=== PATIENT | female | born 1970 | race Caucasian/White ===

== ENCOUNTER 2018-04-17 15:04 | Observation (INO) ==
[2018-04-17] MEDS ORDERED: Naloxone 0.4 MG/ML INJ IVP PRN (17:06)
[2018-04-17] MEDS ORDERED: Acetaminophen 325 MG TABLET PO PRN (17:06)
--- NOTE | 2018-04-17 17:52 | Internal Med History&Physical ---
Date of Encounter: 04/17/18 Time of Encounter: 17:30 Internal Medicine - H&P: HPI Chief complaint: Right knee pain and swelling Admitted From: Emergency Dept ([place]) History of present illness: Ms. Mensah is a 48 year old female patient with a history of hypertension, COPD, hypothyroidism who recently underwent right-sided total knee replacement 2 days back presented to the ER attending [facility] with complaints of worsening swelling and redness around her right knee along with pain going up her thigh and down her leg. Patient reports that the pain and swelling started to get worse after she was discharged home yesterday. She has also been having low-grade fevers. Denies any chest pain or palpitations. No shortness of breath. No nausea or vomiting. Pain in the right leg is severe. She does not have any numbness or tingling in her right foot. Past Med Surg Social Fam HX - Past Medical History Attestation: Yes The following information was validated with the patient. Source: patient Medical history: arthritis, COPD, hypertension, osteoporosis, thyroid disease Additional medical history: hypothyroidism,stress urinary incontinence,hip arthritis,chronic obstructive bronchitis,arthritis,posterior tibial tendon dysfunction Psychiatric history: anxiety, depression - Past Surgical History Surgical History: cholecystectomy, herniorrhaphy, hip replacement, hysterectomy, knee replacement Additional surgical history: L hip - Social History Smoking Status: Current every day smoker Packs per day: 1 Smokeless Tobacco Status: No Alcohol use: none Drug use: none - Family History Father Living Status: Age at : 71 Cause of : CHF Hx Family Cardiac Disorders: Yes Hx Family Respiratory Disorders: Yes - Additional Family History Additional family history: Patient reports history of deep vein thrombosis in her mother and grandmother Internal Medicine - H&P: Meds Alendronate Sodium 10 mg PO DAILY 04/15/18 [History] Aspirin Enteric Coated [Aspirin EC] 325 mg PO BID #20 tablet. 04/15/18 [Rx] Calcium Carbonate/Vitamin D3 [Oyster Shell Calcium-Vit D Tab] 1 tab PO DAILY 04/15/18 [History] Calcium Polycarbophil [Fibercon] 625 mg PO BID 04/15/18 [History] Cholecalciferol (D-3) [Vitamin D] 2,000 unit PO DAILY 04/15/18 [History] Cyanocobalamin (Vitamin B-12) [Vitamin B-12] 1,000 mcg PO DAILY 04/15/18 [History] Doxepin [Sinequan] 25 - 50 mg PO HS 04/15/18 [History] Escitalopram [Lexapro] 20 mg PO DAILY 04/15/18 [History] Famotidine [Pepcid] 20 mg PO DAILY 04/15/18 [History] Latanoprost [Xalatan] 1 puff BOTH EYES HS 04/15/18 [History] Levothyroxine [Synthroid] 25 mcg PO 0630 04/15/18 [History] Loratadine [Claritin] 10 mg PO DAILY 04/15/18 [History] Metoprolol [Lopressor] 25 mg PO BID 04/15/18 [History] Omeprazole [PriLOSEC] 40 mg PO BID 04/15/18 [History] OxyCODONE Immed Rel [Roxicodone 5 MG] 5 mg PO Q6HR PRN 5 Days #20 tablet 04/15/18 [Rx] Oxybutynin Chloride [Ditropan Xl] 10 mg PO DAILY 04/15/18 [History] clonazePAM [Clonazepam] 0.5 mg PO BID PRN 04/15/18 [History] hydrOXYzine pamoate [Hydroxyzine Pamoate] 25 - 50 mg PO BID PRN 04/15/18 [History] hydroCHLOROthiazide [Hydrochlorothiazide] 12.5 mg PO DAILY 04/15/18 [History] Docusate [Colace] 100 mg PO BID capsule 04/16/18 [Rx] Allergy/AdvReac Type Severity Reaction Status Date / Time Diclofenac AdvReac Nausea Verified 04/15/18 10:10 venlafaxine AdvReac Headache Verified 04/15/18 10:10 All Systems PM: A 10-system review of systems was performed and is negative for pertinent findings except as documented above in the HPI. - Constitutional Constitutional: no chills, no fever(s), no night sweats - EENT Eyes: no change in vision, no discharge, no pain, no photophobia Ears: no ear discharge, no ear pain, no tinnitus Nose, mouth and throat: no dysphagia, no nasal discharge, no neck pain, no sore throat - Cardiovascular Cardiovascular ROS IM: no chest pain, no diaphoresis, no dyspnea, no lightheadedness, no palpitations, no syncope - Respiratory Respiratory: no cough, no dyspnea, no wheezing, no excessive phlegm production - Gastrointestinal Gastrointestinal: no abdominal pain, no diarrhea, no hematemesis, no hematochezia, no melena, no nausea, no vomiting - Genitourinary Genitourinary: no change in urinary stream, no dysuria, no flank pain, no hematuria - Musculoskeletal Musculoskeletal ROS IM: joint swelling, no numbness, no tingling - Integumentary Integumentary IM: other (Erythema and redness on the posterior part of her knee extending up the thigh), no rash, no unusual bruising - Neurological Neurological ROS: no confusion, no convulsions, no focal weakness, no numbness, no tingling, no tremor(s) - Constitutional Vitals: Temp Pulse Resp BP Pulse Ox 98.5 F 77 14 123/77 100 04/17/18 17:00 04/17/18 17:00 04/17/18 17:00 04/17/18 17:00 04/17/18 17:00 General appearance: Present: cooperative, A&O X 3, pleasant, answers questions appropriately Exam: General: Patient is alert, moderate distress, oriented x 3 Head: atraumatic, normocephalic, Chest: normal inspection, symmetric chest rise Respiratory: Good respiratory effort. Normal breath sounds. No wheezing or crackles. Cardiovascular: Regular rate and rhythm. s1 and s2 normal No clicks, rubs, gallops, or murmurs. No pedal edema Abdomen: Abdomen is soft, nontender. Bowel sounds are present Musculoskeletal: Spontaneously moving all extremities Skin: Erythema and swelling on the posterior surface of the right knee extending up the thigh and down her leg. Surgical site appears clean. There is mild erythema around the surgical site but erythema is more prominent on the back of the knee. Tenderness to palpation extending down the right calf. Neuro: Alert oriented x 3 normal cranial nerves, no focal deficits Psych: Patient's affect is normal Internal Med - H&P Results - Labs Labs: Sodium 138, potassium 3.3, WBC 13, platelets 339, hemoglobin 11.8 - Impressions X-ray of the right knee shows some joint effusion but right knee arthroplasty does not show any acute hardware complication. - Assessment and plan (1) Leg pain, right Current Visit: Yes Status: Acute Assessment and plan: Patient has pain and swelling in the right knee but pain is mostly in the back of her right thigh extending down her right leg along with swelling and redness. Concern for possible DVT. Will obtain venous Doppler. If venous Doppler negative, we will need to consider right knee joint infection/cellulitis in this region. We will hold off on antibiotics until we clarify this further so that we can obtain synovial fluid samples if needed. WBC count 13 is actually better than yesterday. Patient also reports a family history of blood clots. In the meantime, will treat pain with narcotic medications. (2) COPD (chronic obstructive pulmonary disease) Current Visit: Yes Status: Chronic Assessment and plan: Patient has history of COPD. Not in acute exacerbation. We will place her on bronchodilators as needed Qualifiers: COPD type: unspecified COPD Qualified Code(s): J44.9 - Chronic obstructive pulmonary disease, unspecified (3) Hypertension Current Visit: Yes Status: Chronic Assessment and plan: continue hydrochlorothiazide and metoprolol. Replace potassium Qualifiers: Hypertension type: essential hypertension Qualified Code(s): I10 - Essential (primary) hypertension (4) Anxiety with depression Current Visit: Yes Status: Chronic Assessment and plan: Continue home medications for this including doxepin, Lexapro and clonazepam. - Time Spent With Patient Total time spent is greater than 50% in coordination of care (as documented) at patient's floor/unit and/or counseling patient:
[2018-04-17] MEDS ORDERED: hydrOXYzine pamoate 25 MG CAPSULE PO PRN (18:20)
[2018-04-17] MEDS: *HR* OxyCODONE Immed Rel 5 MG TABLET PO PRN (18:38)
[2018-04-17] MEDS: clonazePAM 0.5 MG TABLET PO PRN (19:52)
[2018-04-17] MEDS: Latanoprost 2.5 ML BOTTLE BOTH EYES SCH (19:53)
[2018-04-17] MEDS: Ringers Solution, Lactated 1,000 ML IVC SCH (23:03)
[2018-04-18] MEDS: *HR* OxyCODONE Immed Rel 5 MG TABLET PO PRN ×3 (00:45→15:57)
[2018-04-18 04:37] LABS: Basophils % 0.3 %; Eosinophils # 0.2 K/mcL (0.0-0.6); Eosinophils % 2.1 %; Hematocrit 32.4 % (35.3-44.9); Hemoglobin 10.5 g/dL (11.5-15.4); Immature Granulocytes % 0.5 % (0-4); Lymphocytes # 3.4 K/mcL (0.6-4.6); Lymphocytes % 32.7 %; Mean Corpuscular HGB Conc 32.4 g/dL (31.6-35.5); Mean Corpuscular Hemoglobin 29.4 pg (28.0-33.3); Mean Corpuscular Volume 90.8 fL (83.0-100.0); Monocytes % 9.2 %; Neutrophils # 5.7 K/mcL (1.6-8.9); Platelet Count 301 K/mcL (140-400); Red Blood Count 3.57 M/mcL (3.82-4.97); Red Cell Distribution Width 13.7 % (11.5-14.5); Segmented Neutrophils % 55.2 %
[2018-04-18 04:58] LABS: BUN/Creatinine Ratio 11 (6-26); Blood Urea Nitrogen 7 mg/dL (6-20); Calcium 8.7 mg/dL (8.6-10.3); Carbon Dioxide 29 mEq/L (23-29); Chloride 106 mEq/L (98-107); Glucose 116 mg/dL (70-105); Osmolality,Calculated 289 (280-300); Potassium 3.7 mEq/L (3.5-5.1); Sodium 140 mEq/L (136-145); eGFR For Non-African Americans > 60 (> 60)
[2018-04-18] MEDS: *HR* Enoxaparin 40 MG/0.4 ML SYRINGE SQ SCH (05:27)
[2018-04-18] MEDS: Levothyroxine 25 MCG TABLET PO SCH (05:27)
[2018-04-18] MEDS: Loratadine 10 MG TABLET PO SCH (08:48)
[2018-04-18] MEDS: Famotidine 20 MG TABLET PO SCH (08:48)
[2018-04-18] MEDS: hydroCHLOROthiazide 25 MG TABLET PO SCH (08:48)
--- NOTE | 2018-04-18 09:56 | Orthopedic Consult Note ---
Date of Encounter: 04/18/18 Time of Encounter: 09:53 Assessment and Plan (1) Osteoarthritis of right knee Current Visit: No Status: Chronic At this point the knee looks excellent clinically. No concern for infection. Expected postoperative changes seen on clinical exam. The Doppler study was negative for DVT. She is orthopedically stable for discharge with regular follow-up. Continue weightbearing as tolerated in therapy. We will be available as needed for any further consultation for any new issues. Qualifiers: Osteoarthritis type: primary Qualified Code(s): M17.11 - Unilateral primary osteoarthritis, right knee History of Present Illness HPI: Ms. Mensah is a 48 year old female who underwent right total knee arthroplasty on of last week. She presented to the emergency department at [facility] and was transferred due to concerns for cellulitis. She underwent a Doppler study which was negative. On my evaluation she complains of expected postoperative pain to the right knee. No new injuries or complaints. She denies fevers, chil ls, numbness, tingling, or any other associated signs or symptoms. Pain is mildly worsened with movement of the knee and with walking and better with rest. No other associated signs or symptoms or modifying factors. Past Med Surg Social Fam HX - Past Medical History Medical history: arthritis, COPD, hypertension, osteoporosis, thyroid disease Additional medical history: hypothyroidism,stress urinary incontinence,hip arthritis,chronic obstructive bronchitis,arthritis,posterior tibial tendon dysfunction Psychiatric history: anxiety, depression - Past Surgical History Surgical History: cholecystectomy, herniorrhaphy, hip replacement, hysterectomy, knee replacement Additional surgical history: L hip - Social History Smoking Status: Current every day smoker Packs per day: 1 Smokeless Tobacco Status: No Alcohol use: none Drug use: none - Family History Father Living Status: Age at : 71 Cause of : CHF Hx Family Cardiac Disorders: Yes Hx Family Respiratory Disorders: Yes Medications and Allergies Alendronate Sodium 10 mg PO DAILY 04/15/18 [History] Aspirin Enteric Coated [Aspirin EC] 325 mg PO BID #20 tablet. 04/15/18 [Rx] Calcium Carbonate/Vitamin D3 [Oyster Shell Calcium-Vit D Tab] 1 tab PO DAILY 04/15/18 [History] Calcium Polycarbophil [Fibercon] 625 mg PO BID 04/15/18 [History] Cholecalciferol (D-3) [Vitamin D] 2,000 unit PO DAILY 04/15/18 [History] Cyanocobalamin (Vitamin B-12) [Vitamin B-12] 1,000 mcg PO DAILY 04/15/18 [History] Doxepin [Sinequan] 25 - 50 mg PO HS 04/15/18 [History] Escitalopram [Lexapro] 20 mg PO DAILY 04/15/18 [History] Famotidine [Pepcid] 20 mg PO DAILY 04/15/18 [History] Latanoprost [Xalatan] 1 puff BOTH EYES HS 04/15/18 [History] Levothyroxine [Synthroid] 25 mcg PO 0630 04/15/18 [History] Loratadine [Claritin] 10 mg PO DAILY 04/15/18 [History] Metoprolol [Lopressor] 25 mg PO BID 04/15/18 [History] Omeprazole [PriLOSEC] 40 mg PO BID 04/15/18 [History] OxyCODONE Immed Rel [Roxicodone 5 MG] 5 mg PO Q6HR PRN 5 Days #20 tablet 04/15/18 [Rx] Oxybutynin Chloride [Ditropan Xl] 10 mg PO DAILY 04/15/18 [History] clonazePAM [Clonazepam] 0.5 mg PO BID PRN 04/15/18 [History] hydrOXYzine pamoate [Hydroxyzine Pamoate] 25 - 50 mg PO BID PRN 04/15/18 [History] hydroCHLOROthiazide [Hydrochlorothiazide] 12.5 mg PO DAILY 04/15/18 [History] Docusate [Colace] 100 mg PO BID capsule 04/16/18 [Rx] Allergy/AdvReac Type Severity Reaction Status Date / Time Diclofenac AdvReac Nausea Verified 04/15/18 10:10 venlafaxine AdvReac Headache Verified 04/15/18 10:10 All Systems Reviewed: Constitutional -The patient denies any fevers, chills, or feelings of illness Neurologic -The patient denies any numbness, tingling, or burning pains Physical Exam - Constitutional Vitals: Temp Pulse Resp BP Pulse Ox 98.8 F 97 16 128/84 96 04/18/18 06:33 04/18/18 06:33 04/18/18 06:33 04/18/18 06:33 04/18/18 06:33 CONSTITUTIONAL -Vitals reviewed -The patient is well developed, well nourished, well groomed PSYCHIATRIC -Fully alert and oriented -Pleasant mood RIGHT LOWER EXTREMITY Inspection shows that the total knee incision is well opposed and without drainage. No redness around the wound and looks very good clinically. I can gently passively range the knee without significant pain. Mild swelling of the knee and leg consistent with her known history of knee replacement. She can grossly flex and extend the ankle and toes and the foot is sensate and well- perfused. Diagnostic Imaging: I did personally review and interpret x-rays of the right knee which show a well-placed total knee arthroplasty Results - Labs Result Diagrams: 04/18/18 03:57 04/18/18 03:57 Labs: Abnormal lab results RBC 3.57 M/mcL (3.82-4.97) L 04/18/18 03:57 Hgb 10.5 g/dL (11.5-15.4) L 04/18/18 03:57 Hct 32.4 % (35.3-44.9) L 04/18/18 03:57 MPV 9.0 fL (9.4-12.4) L 04/18/18 03:57 Glucose 116 mg/dL (70-105) H 04/18/18 03:57 H & H 04/18/18 Range/Units 03:57 Hgb 10.5 L (11.5-15.4) g/dL Hct 32.4 L (35.3-44.9) % All other labs normal. Consult Discharge Plan - Plan Referrals: NONE,PCP [Primary Care Provider] -
[2018-04-18] MEDS: Ketorolac 30 MG/ML VIAL IVP PRN ×2 (12:26→20:46)
--- NOTE | 2018-04-18 13:25 | Internal Med Progress Note ---
Hospitalist Progress Note - Encounter Date of Encounter: 04/18/18 Time of Encounter: 13:20 - Subjective Interval History: 48 year old female patient with a history of hypertension, COPD, hypothyroidism who recently underwent right-sided total knee replacement 2 days prior to presentation yesterday 04/17 She is complaining of knee swelling, pain and difficulty walking Initial concern for DVT, however, DVT ruled out Ortho eval appreciated, patient 's knees have tyical post-op changes and does not need tapped The patient is declining going home and asking to be placed Will consult PTOT - Exam Vitals: Temp Pulse Resp BP Pulse Ox 98.8 F 97 16 128/84 96 04/18/18 06:33 04/18/18 06:33 04/18/18 06:33 04/18/18 06:33 04/18/18 06:33 Exam: General: Patient is alert, not in distress, oriented x 3, morbidly obese Head: atraumatic, normocephalic, Chest: normal inspection, symmetric chest rise Respiratory: Good respiratory effort. Normal breath sounds. No wheezing or crackles. Cardiovascular: Regular rate and rhythm. s1 and s2 normal No clicks, rubs, gallops, or murmurs. No pedal edema Abdomen: Abdomen is soft, non-tender. Bowel sounds are present Musculoskeletal: Spontaneously moving all extremities Skin: mild Erythema and swelling on the posterior surface of the right knee extending up the thigh and down her leg. Surgical site appears clean. There is no obvious infection and her knee joint is not warm, ROM limited by patient's co-operation. Her right foot is well perfused Neuro: Alert oriented x 3 normal cranial nerves, no focal deficits Psych: Patient's affect is normal - Assessment and Plan (1) Hypertension Current Visit: Yes Status: Chronic Assessment and Plan: continue hydrochlorothiazide and metoprolol. (2) COPD (chronic obstructive pulmonary disease) Current Visit: Yes Status: Chronic Assessment and Plan: Patient has history of COPD. Not in acute exacerbation. Continue bronchodilators as needed (3) Leg pain, right Current Visit: Yes Status: Acute Assessment and Plan: Post-op, as expected, pain is not above expectation, but patient wants to be placed in SNF and states she cannot walk Continue pain control PT eval requested (4) Anxiety with depression Current Visit: Yes Status: Chronic Assessment and Plan: Continue home medications for this including doxepin, Lexapro and clonazepam. DVT Prophylaxis: SQ lovenox - Time Spent with Patient Total time spent is greater than 50% in coordination of care (as documented) at patient's floor/unit and/or counseling patient: Plan of Care Discussed with: patient Internal Medicine: Result - Labs CBC & Chem 7: 04/18/18 03:57 04/18/18 03:57 Labs: Short CBC 04/18/18 Range/Units 03:57 WBC 10.3 (4.3-11.1) K/mcL Hgb 10.5 L (11.5-15.4) g/dL Hct 32.4 L (35.3-44.9) % Plt Count 301 (140-400) K/mcL Neutrophils # 5.7 (1.6-8.9) K/mcL BMP 04/18/18 03:57 Sodium 140 Potassium 3.7 Chloride 106 Carbon Dioxide 29 BUN 7 Creatinine 0.62 Glucose 116 H Calcium 8.7 Consult Discharge Plan - Plan Referrals: NONE,PCP [Primary Care Provider] - ___ (1) Hypertension Qualifiers: Hypertension type: essential hypertension Qualified Code(s): I10 - Essential (primary) hypertension (2) COPD (chronic obstructive pulmonary disease) Qualifiers: COPD type: unspecified COPD Qualified Code(s): J44.9 - Chronic obstructive pulmonary disease, unspecified
[2018-04-18] MEDS: Ringers Solution, Lactated 1,000 ML IVC SCH (14:30)
[2018-04-18] MEDS: clonazePAM 0.5 MG TABLET PO PRN (15:33)
[2018-04-18] MEDS: Nicotine 14 MG PATCH.TD24 TD SCH (15:33)
[2018-04-18] MEDS: Latanoprost 2.5 ML BOTTLE BOTH EYES SCH (23:55)
[2018-04-19] MEDS: *HR* OxyCODONE Immed Rel 5 MG TABLET PO PRN ×3 (00:02→13:02)
[2018-04-19 05:34] LABS: Basophils % 0.4 %; Eosinophils # 0.3 K/mcL (0.0-0.6); Eosinophils % 3.1 %; Hematocrit 32.3 % (35.3-44.9); Hemoglobin 10.4 g/dL (11.5-15.4); Immature Granulocytes % 0.5 % (0-4); Lymphocytes # 2.9 K/mcL (0.6-4.6); Lymphocytes % 31.3 %; Mean Corpuscular HGB Conc 32.2 g/dL (31.6-35.5); Mean Corpuscular Hemoglobin 29.9 pg (28.0-33.3); Mean Corpuscular Volume 92.8 fL (83.0-100.0); Mean Platelet Volume 9.1 fL (9.4-12.4); Monocytes # 0.6 K/mcL (0.0-1.3); Monocytes % 6.5 %; Neutrophils # 5.3 K/mcL (1.6-8.9); Platelet Count 320 K/mcL (140-400); Red Blood Count 3.48 M/mcL (3.82-4.97); Red Cell Distribution Width 13.8 % (11.5-14.5); Segmented Neutrophils % 58.2 %
[2018-04-19] MEDS: *HR* Enoxaparin 40 MG/0.4 ML SYRINGE SQ SCH (05:47)
[2018-04-19] MEDS: Levothyroxine 25 MCG TABLET PO SCH (05:47)
[2018-04-19] MEDS: Ringers Solution, Lactated 1,000 ML IVC SCH (05:57)
[2018-04-19 06:00] LABS: BUN/Creatinine Ratio 18 (6-26); Blood Urea Nitrogen 11 mg/dL (6-20); Calcium 8.4 mg/dL (8.6-10.3); Carbon Dioxide 28 mEq/L (23-29); Chloride 105 mEq/L (98-107); Glucose 113 mg/dL (70-105); Osmolality,Calculated 288 (280-300); Potassium 3.7 mEq/L (3.5-5.1); Sodium 139 mEq/L (136-145); eGFR For Non-African Americans > 60 (> 60)
[2018-04-19] MEDS: Loratadine 10 MG TABLET PO SCH (08:52)
[2018-04-19] MEDS: Famotidine 20 MG TABLET PO SCH (08:53)
[2018-04-19] MEDS: Nicotine 14 MG PATCH.TD24 TD SCH (08:54)
[2018-04-19] MEDS: hydroCHLOROthiazide 25 MG TABLET PO SCH (08:57)
--- NOTE | 2018-04-19 11:34 | Physician Discharge Referral ---
Home Health/Hosp Referral Info Transfer to: Home Health Attending Provider: Ignacia Han Provider in Charge Post Discharge: PCP - Diagnosis (1) Hypertension Priority: Secondary Status: Chronic (2) COPD (chronic obstructive pulmonary disease) Priority: Secondary Status: Chronic (3) Leg pain, right Priority: Primary Status: Acute (4) Anxiety with depression Priority: Secondary Status: Chronic (5) Tobacco use Priority: Secondary Status: Chronic (6) Morbid obesity Priority: Secondary Status: Chronic (7) Status post total right knee replacement Priority: Primary Status: Acute - Respiratory Orders Smoking Cessation: Smoking cessation has been advised. For more information, call the [place] Tobacco Quit Line at 6-630-UQLS-NOW. - Diet/Nutrition Diet/Nutrition Orders: Cardiac - Activity Activity Orders: Up ad zach - Services Needed Following services are medically necessary services: Nursing, Home Health Aide, Physical Therapy, Occupational Therapy - Transfer Medications Home Medications: Alendronate Sodium 10 mg PO DAILY 04/15/18 [History] Aspirin Enteric Coated [Aspirin EC] 325 mg PO BID #20 tablet. 04/15/18 [Rx] Calcium Carbonate/Vitamin D3 [Oyster Shell Calcium-Vit D Tab] 1 tab PO DAILY 04/15/18 [History] Calcium Polycarbophil [Fibercon] 625 mg PO BID 04/15/18 [History] Cholecalciferol (D-3) [Vitamin D] 2,000 unit PO DAILY 04/15/18 [History] Cyanocobalamin (Vitamin B-12) [Vitamin B-12] 1,000 mcg PO DAILY 04/15/18 [History] Doxepin [Sinequan] 25 - 50 mg PO HS 04/15/18 [History] Escitalopram [Lexapro] 20 mg PO DAILY 04/15/18 [History] Famotidine [Pepcid] 20 mg PO DAILY 04/15/18 [History] Latanoprost [Xalatan] 1 puff BOTH EYES HS 04/15/18 [History] Levothyroxine [Synthroid] 25 mcg PO 0630 04/15/18 [History] Loratadine [Claritin] 10 mg PO DAILY 04/15/18 [History] Metoprolol [Lopressor] 25 mg PO BID 04/15/18 [History] Omeprazole [PriLOSEC] 40 mg PO BID 04/15/18 [History] OxyCODONE Immed Rel [Roxicodone 5 MG] 5 mg PO Q6HR PRN 5 Days #20 tablet 04/15/18 [Rx] Oxybutynin Chloride [Ditropan Xl] 10 mg PO DAILY 04/15/18 [History] clonazePAM [Clonazepam] 0.5 mg PO BID PRN 04/15/18 [History] hydrOXYzine pamoate [Hydroxyzine Pamoate] 25 - 50 mg PO BID PRN 04/15/18 [History] hydroCHLOROthiazide [Hydrochlorothiazide] 12.5 mg PO DAILY 04/15/18 [History] Docusate [Colace] 100 mg PO BID capsule 04/16/18 [Rx] Allergies/Adverse Reactions: Allergy/AdvReac Type Severity Reaction Status Date / Time Diclofenac AdvReac Nausea Verified 04/15/18 10:10 venlafaxine AdvReac Headache Verified 04/15/18 10:10 Certification: Further, I certify that my clinical findings support that this patient is homebound (i.e. absences from home require considerable and taxing effort and are for medical reasons or hoahaoism services or infrequently or short duration when for other reasons) because: Homebound Reason: Patient requires assistance of a person or device to safely leave home Attestation: My signature below is to certify that this patient is under my care and that I, or nurse practitioner, or a physician's diver assistant working with me, has a [id number] encounter with this patient.
--- NOTE | 2018-04-19 11:40 | Discharge Summary ---
- NOTES TO OUTPATIENT PROVIDER Notes to Outpatient Provider: Follow-up with primary care physician and an orthopedic surgery. There has been no change in home medications. Orders not resulted at time of discharge: Pending orders 04/20/18 04:00 Chem 7 [Basic Metabolic Panel] AM 0400 Complete Blood Count [HEME] AM 0400 Date of Encounter: 04/19/18 Time of Encounter: 11:37 - Discharge Diagnosis (1) Hypertension Priority: Secondary Status: Chronic Qualifiers: Hypertension type: essential hypertension Qualified Code(s): I10 - Essential (primary) hypertension (2) COPD (chronic obstructive pulmonary disease) Priority: Secondary Status: Chronic Qualifiers: COPD type: unspecified COPD Qualified Code(s): J44.9 - Chronic obstructive pulmonary disease, unspecified (3) Leg pain, right Priority: Primary Status: Acute (4) Anxiety with depression Priority: Secondary Status: Chronic (5) Tobacco use Priority: Secondary Status: Chronic (6) Morbid obesity Priority: Secondary Status: Chronic (7) Status post total right knee replacement Priority: Primary Status: Acute Hospital course: Ms. Mensah is a 48 year old female patient with a history of hypertension, COPD, hypothyroidism who recently underwent right-sided total knee replacement 2 days prior to presentation 04/17 Initial concern for DVT, however, DVT ruled out Ortho eval appreciated, patient 's knees have typical post-op changes and does not need tapped She has been afebrile, she is not septic, she has no leukocytosis, wound incision is clean and dry. She initially refused to be discharged home and asked to be placed to rehabilitation. However, the patient did not qualify for rehabilitation based on her insurance. She is to be discharged home with home health physical therapy. She is seen and evaluated at the bedside,she has no new complains, she is hemodynamically stable for discharge. No changes have been made with home meds Follow up with PCP and Orthopedic surgeon 3 mins spent on tobacco cessation counselling Discharge discussed with: patient, nurse, social work Time spent discussing smoking cessation with patient: 3 to 10 minutes (3 minutes spent on tobacco cessation counseling.) - Time Spent with Patient Total time spent providing and/or coordinating discharge services: Less than 30 minutes - Discharge Medications Home Medications: Alendronate Sodium 10 mg PO DAILY 04/15/18 [History] Aspirin Enteric Coated [Aspirin EC] 325 mg PO BID #20 tablet. 04/15/18 [Rx] Calcium Carbonate/Vitamin D3 [Oyster Shell Calcium-Vit D Tab] 1 tab PO DAILY 04/15/18 [History] Calcium Polycarbophil [Fibercon] 625 mg PO BID 04/15/18 [History] Cholecalciferol (D-3) [Vitamin D] 2,000 unit PO DAILY 04/15/18 [History] Cyanocobalamin (Vitamin B-12) [Vitamin B-12] 1,000 mcg PO DAILY 04/15/18 [History] Doxepin [Sinequan] 25 - 50 mg PO HS 04/15/18 [History] Escitalopram [Lexapro] 20 mg PO DAILY 04/15/18 [History] Famotidine [Pepcid] 20 mg PO DAILY 04/15/18 [History] Latanoprost [Xalatan] 1 puff BOTH EYES HS 04/15/18 [History] Levothyroxine [Synthroid] 25 mcg PO 0630 04/15/18 [History] Loratadine [Claritin] 10 mg PO DAILY 04/15/18 [History] Metoprolol [Lopressor] 25 mg PO BID 04/15/18 [History] Omeprazole [PriLOSEC] 40 mg PO BID 04/15/18 [History] OxyCODONE Immed Rel [Roxicodone 5 MG] 5 mg PO Q6HR PRN 5 Days #20 tablet 04/15/18 [Rx] Oxybutynin Chloride [Ditropan Xl] 10 mg PO DAILY 04/15/18 [History] clonazePAM [Clonazepam] 0.5 mg PO BID PRN 04/15/18 [History] hydrOXYzine pamoate [Hydroxyzine Pamoate] 25 - 50 mg PO BID PRN 04/15/18 [History] hydroCHLOROthiazide [Hydrochlorothiazide] 12.5 mg PO DAILY 04/15/18 [History] Docusate [Colace] 100 mg PO BID capsule 04/16/18 [Rx] Allergies/Adverse Reactions: Allergy/AdvReac Type Severity Reaction Status Date / Time Diclofenac AdvReac Nausea Verified 04/15/18 10:10 venlafaxine AdvReac Headache Verified 04/15/18 10:10 Date of admission: 04/17/18 16:46 Primary care physician: PCP NONE Consults: 04/17/18 17:10 Consult to Orthopedic Surgery [CONS] Routine Consulting Provider: [facility] Reason for Consult: Right knee pain and swelling; Came from [facility]/ S/p Right TKR Call Completed: Yes 04/18/18 13:22 Consult to Physical Therapy [CONS] Routine Comment: Evaluate, develop and implement POC Reason for Consult: Assess gait, s/p TKR Does patient have active BEDREST order?: No Is patient medically & hemodynamically stable?: Yes 04/19/18 08:26 Consult to Floor Covering Printer Assistant [CONS] Routine Reason for SW Consult: Wants to be placed to SNF for rehab post- knee replacement 04/19/18 09:14 Consult to Occupational Therapy [CONS] Routine Comment: Evaluate, develop and implement POC Reason for Consult: discharge planning Does patient have active BEDREST order?: No Is patient medically & hemodynamically stable?: Yes Discharging clinician: Servando Han Anticipated date of discharge: 04/19/18 - Constitutional Vitals: Temp Pulse Resp BP Pulse Ox 98.8 F 72 16 96/68 93 04/19/18 10:33 04/19/18 10:33 04/19/18 10:33 04/19/18 10:33 04/19/18 10:33 General appearance: Present: cooperative, A&O X 3, pleasant, answers questions appropriately Exam: General: Patient is alert, not in distress, oriented x 3, morbidly obese Head: atraumatic, normocephalic, Chest: normal inspection, symmetric chest rise Respiratory: Good respiratory effort. Normal breath sounds. No wheezing or crackles. Cardiovascular: Regular rate and rhythm. s1 and s2 normal No clicks, rubs, gallops, or murmurs. No pedal edema Abdomen: Abdomen is soft, non-tender. Bowel sounds are present Musculoskeletal: Spontaneously moving all extremities Skin: Surgical site appears clean. There is no obvious infection and her knee joint is not warm, ROM passively normal. Her right foot is well perfused Neuro: Alert oriented x 3 normal cranial nerves, no focal deficits Psych: Patient's affect is normal - Patient Status Disposition: Home Health Service Condition: Fair Functional capacity at discharge: uses cane/walker Overall status at discharge: patient is progressing back to baseline - Discharge Instructions Follow Up With: NONE,PCP [Primary Care Provider] - - Diet and Activity Activity: as per physical therapy
[2018-04-19 12:47] VITALS: BP 123/80
== END 2018-04-19 15:05 | disposition home health service (06) ==
LOC: 3NENU → SUATTDRO 16:46
PROVIDERS: ADMIT Internal Medicine; ATTEND Internal Medicine